=== PATIENT | female | born 1950 | race Caucasian/White ===

== ENCOUNTER 2022-05-27 13:06 | Emergency (ER) | payer MEDICARE ==
[~2022-05-27] VITALS: Ht 165.1 cm; Wt 72.6 kg
[2022-05-27] MEDS ORDERED: KETOROLAC TROMETHAMINE 60 MG/2 ML VIAL IM ONE (13:30)
[2022-05-27] MEDS ORDERED: DIAZEPAM 5 MG TAB PO ONE (13:30)
[2022-05-27] MEDS ORDERED: HYDROCODONE/APAP 5MG-325MG TAB PO ONE (15:00)
== END 2022-05-27 15:11 | disposition home or self-care (01) ==
LOC: ER 13:20
DX: M54.41 Lumbago with sciatica, right side (principal); S39.012A Strain of muscle, fascia and tendon of lower back, initial encounter; F41.9 Anxiety disorder, unspecified; Z85.828 Personal history of other malignant neoplasm of skin
CPT/HCPCS: 99282; J1885